=== PATIENT | male | born 1955 | race Two or more races ===

== ENCOUNTER 2024-12-04 20:34 | Emergency (ER) | payer BC ==
[~2024-12-04] VITALS: Ht 172.7 cm; Wt 129.3 kg
[2024-12-04] MEDS ORDERED: ZESTRIL20 MG PO (21:26)
[2024-12-04] MEDS ORDERED: LIPITOR20 MG PO (21:26)
[2024-12-04] MEDS ORDERED: ZESTORETIC 20-1 EACH PO (21:27)
[2024-12-04] MEDS ORDERED: ZOLOFT100 MG PO (21:27)
[2024-12-04] MEDS ORDERED: GLUMETZA500 MG PO (21:27)
[2024-12-04] MEDS ORDERED: CONCERTA18 MG PO (21:28)
[2024-12-04] MEDS ORDERED: SILDENAFIL20 MG PO (21:28)
[2024-12-04] MEDS ORDERED: EVEKEO10 MG PO (21:29)
[2024-12-04] MEDS ORDERED: 0.9 % SODIUM CHLORIDE 1,000 ML IV STA (23:00)
[2024-12-04 23:45] LABS: HEMATOCRIT 40.4 % (39.0-48.0); HEMOGLOBIN 14.3 g/dL (13-16.00); MEAN CELL VOLUME 94.2 fL (80.0-100.00); MEAN CORPUSCULAR HEMOGLOBIN 33.4 pg (27.00-32.0); MEAN CORPUSCULAR HGB CONC 35.4 g/dl (32.0-36.0); PLATELET COUNT 211 K/uL (150-450); RED BLOOD COUNT 4.29 M/uL (4.00-6.00); RED CELL DISTRIBUTION WIDTH 12.6 % (11.5-14.5)
[2024-12-05 00:26] LABS: ALBUMIN 4.3 gm/dL (3.4-5.0); BILIRUBIN TOTAL 0.39 mg/dL (0.3-1.2); CALCIUM 9.5 mg/dL (8.5-10.1); CREATININE SERUM 1.04 mg/dL (0.70-1.30); GFR 71.23; GLOBULINA 3.1 G/DL (2.4-3.5); POTASSIUM 4.31 mEq/L (3.5-5.1); TOTAL PROTEIN 7.4 gm/dL (6.4-8.2)
== END 2024-12-05 02:21 | disposition home or self-care (01) ==
LOC: ER 20:36
DX: R55 Syncope and collapse (principal); Z88.8 Allergy status to other drugs, medicaments and biological substances; E86.0 Dehydration